=== PATIENT | female | born 1970 | race Caucasian/White ===

== ENCOUNTER → 2020-07-03 | Outpatient (CLI) | payer BC, OTHER | LOC: MAMO 05-15 13:00 → US 05-15 13:00 → MAMO 06-12 10:00 → US 06-12 10:30 → MAMO 11:30 | DX: Z53.9 Procedure and treatment not carried out, unspecified reason (principal) ==

== ENCOUNTER → 2020-09-02 | Outpatient (CLI) | payer BC, OTHER | LOC: MAMO 07-28 14:30 → US 07-28 14:30 → MAMO 08-26 13:30 → EDSTATUS 13:30 → MAMO 14:04 | DX: R92.8 Other abnormal and inconclusive findings on diagnostic imaging of breast (principal); M54.2 Cervicalgia; M25.78 Osteophyte, vertebrae; M48.02 Spinal stenosis, cervical region; N63.20 Unspecified lump in the left breast, unspecified quadrant | CPT/HCPCS: 72141; 76642-LT; 77065; G0279 ==

== ENCOUNTER → 2021-06-22 | Outpatient (CLI) | payer BC | LOC: EMI 13:47 | DX: M50.122 Cervical disc disorder at C5-C6 level with radiculopathy (principal) | CPT/HCPCS: 72141 ==

== ENCOUNTER 2021-12-05 15:04 | Emergency (ER) | payer BC | END 2021-12-05 16:35 | disposition home or self-care (01) | LOC: ER1 15:04 | PROVIDERS: Surgery | PROC: 0DC58ZZ Extirpation of Matter from Esophagus, Via Natural or Artificial Opening Endoscopic (ICD-10-PCS; principal; 2021-12-05 16:58) | DX: T18.128A Food in esophagus causing other injury, initial encounter (principal); M10.9 Gout, unspecified; G43.909 Migraine, unspecified, not intractable, without status migrainosus; M19.90 Unspecified osteoarthritis, unspecified site; F17.210 Nicotine dependence, cigarettes, uncomplicated; X58.XXXA Exposure to other specified factors, initial encounter | CPT/HCPCS: 71045; 99283; J1100; J2405; J2704; J3010; J7040 ==